=== PATIENT | female | born 1985 | race Caucasian/White ===

== ENCOUNTER 2024-04-11 13:56 | Emergency (ER) | payer SELFPAY ==
[~2024-04-11] VITALS: Ht 167.6 cm; Wt 47.2 kg
== END 2024-04-11 15:38 | disposition home or self-care (01) ==
LOC: ER 13:56
DX: K59.00 Constipation, unspecified (principal); Z88.0 Allergy status to penicillin
CPT/HCPCS: 74018; 99283-25